=== PATIENT | female | born 1955 | race Caucasian/White ===

== ENCOUNTER → 2020-01-14 14:20 | Outpatient (CLI) | payer MEDICARE, BC, SELFPAY ==
[2020-01-14 14:37] LABS: RBC Urine None Seen (0-5/HPF)
[2020-01-14 15:32] LABS: Appearance Urine UA CLEAR; Bilirubin Urine UA NEGATIVE (NEGATIVE); Color Urine UA YELLOW; Glucose Urine UA NEGATIVE (Negative); Ketones Urine UA NEGATIVE (NEGATIVE); Leukocyte Esterase Urine UA NEGATIVE (NEGATIVE); Nitrite Urine UA NEGATIVE (Negative); Occult Blood Urine UA NEGATIVE (Negative); Protein Urine UA NEGATIVE (Negative); Specific Gravity Urine UA <=1.005 (1.000-1.035); Urobilinogen Urine UA 0.2 E.U./dL (0.2)
[2020-01-14 16:09] LABS: Bacteria Urine Occasional (0-1); Squamous Epithelial Cell Urine 0-1 /HPF (0-5/HPF); WBC Urine 0-1/HPF (0-5/HPF)
== END ==
PROVIDERS: Referring Provider Physician Assistant; Visit Provider Physician Assistant
DX: R39.15 Urgency of urination (principal)
CPT/HCPCS: 81001; 87086

== ENCOUNTER → 2020-03-05 11:02 | Outpatient (CLI) | payer MEDICARE, BC, SELFPAY ==
[2020-03-06 21:17] LABS: COVID19 Sendout Not Detected (Not Detect)
== END ==
PROVIDERS: Visit Provider Physician Assistant
DX: Z01.818 Encounter for other preprocedural examination (principal)
CPT/HCPCS: 87635

== ENCOUNTER 2020-03-08 06:10 | Day surgery (SDC) | payer MEDICARE, BC, SELFPAY ==
--- NOTE | 2020-03-07 17:27 | PM.PREOP ---
Pre-operative Note COVID-19 COVID-19 status: Negative Interval Note History & Physical reviewed/Exam performed by Physician: Yes Changes to H&P: No
[2020-03-08] MEDS: CATARACT EYE COMPOUND (10 DROPS/SYRINGE) 3 DROPS EYE-OP ×2 (07:25→07:38)
[2020-03-08] MEDS: PROPARACAINE 0.5% OPHTH SOL 2 DROPS EYE-OP (07:28)
[2020-03-08 07:30] VITALS: BP 101/56; PULSE 58; RESP 16; TEMP 36.2; O2SAT 97; BMI 26.6
--- NOTE | 2020-03-08 07:35 | PM.PROC.1 ---
Procedures Date/Time Date of procedure: 03/08/20 Time of procedure: 07:45
--- NOTE | 2020-03-08 07:36 | PM.OP.1 ---
Operative Date/Time/Diagnoses Date of procedure: 03/08/20 Time of procedure: 07:45 Procedure & Clinicians Procedure: Preoperative diagnoses: 1. Right advanced nuclear sclerotic and cortical cataract. 2. H/o brain tumor resection. 3. Hyperlipidemia. Postoperative diagnoses: 1. Cataract removed by phacoemulsification with placement of posterior chamber intraocular lens. Procedure: Phacoemulsification with posterior chamber intraocular lens implant Surgeon: Shelby Meeks MD Complications: None Specimen: None Implant: ZCBOO+17.5 Blood loss: None Anesthesia: Retrobulbar with monitored standby Description of procedure: Patient presents with a complaint of decreased vision due to advanced cataract which is affecting activities of daily living . The patient wants surgery to improve vision. She understands she is having surgery during the COVID-19 epidemic and desires to proceed. She was preoperatively tested for the virus and was negative within 72 hours of surgery. Both distance and near The patient was taken to the operating room and given IV sedation. A retrobulbar block consisting of 6 cc of 2% xylocaine without epinephrine mixed half and half with 0.5% Marcaine with 1 cc of hyaluronidase added is placed between the medial and lateral 1/3 of the inferior orbital rim. The eye is manually massaged for 30 sec, prepped using Betadine solution, and draped in the usual sterile fashion. Temporal approach was made, a 1 mm side-port incision was made 90? from the proposed clear corneal incision position. Phenylephrine 1.5% mixed with 1% xylocaine 0.2 cc was placed into the anterior chamber. Viscoat followed by Healon was then placed. A 2.6 mm clear incision with a 2.6 mm blade was placed. A 360 degree capsulorrhexis style capsulotomy was then performed with a cystitome needle on a Healon. Hydrodelineation and hydrodissection were performed. The phacoemulsification unit is introduced, and sculpting notice used to groove the central lens. It is then removed in chopping mode. The patient had a sudden jerking motion during the procedure however no untoward events occurred. Epi nucleus is removed with epinuclear mode and irrigation aspiration was used to remove the peripheral cortex. The posterior capsule is polished as service was an extensive posterior subcapsular plaque.. The intraocular lens is selected, inspected, power confirmed, and placed in the posterior chamber. The wound was stromally hydrated and tested for leaks, there was none and it was left sutureless. Vigamox 0.1 cc was placed into the anterior chamber. Kenalog 0.2 cc was placed in the superior subconjunctival space. A drop of antibiotic and was placed and the eye was patched and shielded. The patient was stable and returned to the recovery room in excellent condition. Dictated by: Shelby Meeks MD Copy to: [facility] Same procedure as scheduled: Yes
[2020-03-08] MEDS: LIDOCAINE 2% 4 ML, BUPIVACAINE 0.5% (PF) 4 ML, HYALURONIDASE 150 UNIT INJ (07:53)
[2020-03-08] MEDS: CHONDROIDTIN/SOD HYALURONATE 1.05 ML SYRINGE INTRAOCULA (08:12)
[2020-03-08] MEDS: HYALURONATE SODIUM 10 MG/ML SYRINGE INJ (08:13)
[2020-03-08] MEDS: ERYTHROMYCIN OPHTH 1 GM OINT 1 APPLIC EYE-RIGHT (08:13)
[2020-03-08] MEDS: MOXIFLOXACIN INJ 5 MG/ML VIAL EYE-OP (08:14)
[2020-03-08] MEDS: PHENYLEPHRINE/LIDOCAINE VIAL (OR) 0.2 ML EYE-OP (08:14)
[2020-03-08] MEDS: TRIAMCINOLONE 50 MG/5 ML VIAL INJ (08:15)
[2020-03-08] MEDS: BALANCED SALT IRRIG SOLN NO.2 500 ML, EPINEPHrine 1 MG IRR (08:15)
[2020-03-08 08:51] VITALS: BP 105/58; PULSE 56; RESP 16; TEMP 35.9; O2SAT 97
== END 2020-03-08 09:00 | disposition home or self-care (01) ==
LOC: OR 06:13
PROVIDERS: PCP Internal Medicine; Referring Provider Ophthalmology; Visit Provider Ophthalmology
PROC: (CPT 66984; principal; 2020-03-08 07:45)
DX: H25.811 Combined forms of age-related cataract, right eye (principal); E78.5 Hyperlipidemia, unspecified; H40.013 Open angle with borderline findings, low risk, bilateral; H04.123 Dry eye syndrome of bilateral lacrimal glands
CPT/HCPCS: 66984; J0171; J2250; J2704; J3010; J3301; J3470

== ENCOUNTER → 2020-07-20 07:07 | Outpatient (CLI) | payer MEDICARE, BC, SELFPAY ==
[2020-07-20 08:44] LABS: Cholesterol 239 mg/dL (140-199); HDL Cholesterol 51 mg/dL (40-60); LDL Cholesterol Calculated 158 mg/dL (<100); Triglycerides 152 mg/dL (35-150)
== END ==
PROVIDERS: PCP Internal Medicine; Referring Provider Internal Medicine; Visit Provider Internal Medicine
DX: E78.2 Mixed hyperlipidemia (principal)
CPT/HCPCS: 36415; 80061

== ENCOUNTER → 2021-07-17 17:20 | Outpatient (CLI) | payer MEDICARE, BC, SELFPAY ==
--- NOTE | 2021-07-17 | DI.MG.S_ITS ---
BILATERAL DIGITAL SCREENING MAMMOGRAM 3D/2D WITH CAD: 07/17/2021 CLINICAL: Routine screening. Comparison is made to exam dated: 12/29/2018 mammogram - outside facility. The tissue of both breasts is predominantly fatty. Current study was also evaluated with a Computer Aided Detection (CAD) system. No significant masses, calcifications, or other findings are seen in either breast. There has been no significant interval change. IMPRESSION: NEGATIVE There is no mammographic evidence of malignancy. A 1 year screening mammogram is recommended. This exam was interpreted at Station ID: [id number]. NOTE: For mammograms, a report in lay terms will be sent to the patient. Approximately 15% of breast malignancies will not be visualized mammographically. In the management of a palpable breast mass, a negative mammogram must not discourage biopsy of a clinically suspicious lesion. Electronically Signed By: Cornelio Stuart M.D., jr/[place]:07/18/2021 11:17:16 letter sent: Normal Exam ACR BI-RADS Category 1: Negative 3341F
== END ==
PROVIDERS: PCP Internal Medicine; Referring Provider Internal Medicine; Visit Provider Internal Medicine
DX: Z12.31 Encounter for screening mammogram for malignant neoplasm of breast (principal)
CPT/HCPCS: 77063; 77067

== ENCOUNTER 2021-09-19 07:54 | Day surgery (SDC) | payer MEDICARE, BC, SELFPAY ==
--- NOTE | 2021-09-19 08:10 | SUR.PREOP ---
co9vid swab sent to lab
[2021-09-19 08:22] VITALS: BP 106/63; PULSE 73; RESP 16; TEMP 36.3; O2SAT 100; BMI 28.3
[2021-09-19 08:28] LABS: COVID19 -Nasal RAPID Negative (Negative)
[2021-09-19] MEDS: SODIUM CHLORIDE 0.9% 1,000 ML 100 ML IV (08:30)
--- NOTE | 2021-09-19 08:51 | PM.HP.1 ---
History of Present Illness History of Present Illness Date Patient Seen: 09/19/21 Chief complaint: DX COLONOSCOPY Narrative: History of adenomatous colon polyps. May be advancement of disease of procedure not performed on time. Patient History Medical History (Updated 09/19/21 @ 07:58 by Sherrill Greer RN) Depression Family & Social History Social History: household members spouse Tobacco & Substance use: Smoking Status Former smoker alcohol intake never Substance Use Type does not use Meds Home Medications and Allergies Home Medications Medication Instructions Recorded Confirmed Type bupropion HCl 150 mg 24 hr tablet, 150 mg PO DAILY 03/08/20 09/19/21 History extended release (Wellbutrin XL) fluoxetine 20 mg capsule 20 mg PO DAILY 03/08/20 09/19/21 History cholecalciferol (vitamin D3) 25 25 mcg PO DAILY 09/19/21 09/19/21 History mcg (1,000 unit) tablet (Vitamin D3) magnesium 2 tab PO DAILY 09/19/21 09/19/21 History multivitamin 2 tab PO DAILY 09/19/21 09/19/21 History Allergies Allergy/AdvReac Type Severity Reaction Status Date / Time No Known Drug Allergies Allergy Verified 03/07/20 12:38 Exam Vital Signs (past 8 hours): - 09/19/21 08:22 Temperature 97.3 F L Pulse Rate 73 Respiratory Rate 16 Blood Pressure 106/63 Pulse Oximetry 100 Oxygen Delivery Method Room Air Narrative Exam Narrative: Oropharynx free of lesions Chest clear to auscultation percussion Cardiac exam reveals no S3 or murmur Objective Labs Labs: Laboratory Results - last 24 hr 09/19/21 08:06 SARS-CoV-2 (PCR) Negative Assessment & Plan Assessment & Plan narrative: History of adenomatous colon polyps need for follow-up colonoscopy. Risks, benefits, alternatives have been explained. Further recommendation will follow the results of the study. Time Spent With Patient Critical Care time: I spent a total of [] minutes of critical care time on this patient's care today; this time is exclusive of procedural time.
--- NOTE | 2021-09-19 09:24 | PM.OP.COLON ---
Operative Date/Time/Diagnoses Pre-op diagnosis: History of colon polyps Procedure & Clinicians Study performed: Colonoscopy Indications: History of colon polyps Surgeon: Delfin Mckenna Procedure Notes Procedure in detail: After informed consent was obtained the patient was placed in the left lateral decubitus position. The video colonoscope was introduced to the rectum slowly advanced cecum at the level of the IC valve. Preparation was good. Advancement was difficult given excessive and multiple loops. On slow withdrawal mucosa was carefully examined. The scope was removed. The patient tolerated procedure well. Blood loss none Complications none Sedation mac Findings 1. Moderate to severe melanosis coli through the entire colon 2. Otherwise negative colonoscopy to the cecal rim Given difficulty visualizing all areas and not seeing the last couple of cm of colon was just she of follow-up colonoscopy in 5 years.
[2021-09-19 09:31] VITALS: BP 101/58; PULSE 67; RESP 16; TEMP 36.2; O2SAT 95
[2021-09-19 09:36] VITALS: BP 110/56; PULSE 73; RESP 16; O2SAT 95
[2021-09-19 09:40] VITALS: BP 103/56; PULSE 71; RESP 12; O2SAT 96
[2021-09-19 09:46] VITALS: BP 116/74; PULSE 72; RESP 16; TEMP 36.2; O2SAT 96
[2021-09-19 09:51] VITALS: BP 117/68; PULSE 68; RESP 14; O2SAT 98
== END 2021-09-19 10:01 | disposition home or self-care (01) ==
PROVIDERS: Internal Medicine Gastroenterology; PCP Internal Medicine; Referring Provider Internal Medicine Gastroenterology; Visit Provider Internal Medicine Gastroenterology
PROC: 0DJD8ZZ Inspection of Lower Intestinal Tract, Via Natural or Artificial Opening Endoscopic (ICD-10-PCS; CPT 45378; principal; 2021-09-19 09:00)
DX: Z12.11 Encounter for screening for malignant neoplasm of colon (principal); Z86.010 Personal history of colon polyps; K63.89 Other specified diseases of intestine; Z20.822 Contact with and (suspected) exposure to COVID-19
CPT/HCPCS: G0105; 36415; 87635; J2704

== ENCOUNTER → 2021-11-05 10:22 | Outpatient (CLI) | payer MEDICARE, BC, SELFPAY ==
[2021-11-05 11:41] LABS: COVID19 -Nasal RAPID Negative (Negative)
== END ==
PROVIDERS: PCP Internal Medicine; Visit Provider Family Medicine Sleep Medicine
DX: Z20.822 Contact with and (suspected) exposure to COVID-19 (principal)
CPT/HCPCS: 87635; C9803

== ENCOUNTER 2021-11-07 07:21 | Day surgery (SDC) | payer MEDICARE, BC, SELFPAY ==
--- NOTE | 2021-11-05 18:36 | PM.PREOP ---
Pre-operative Note COVID-19 COVID-19 status: Negative Criteria for continued procedure: Expected advancement of disease process, Possibility delay results in more complex future surgery or treatment, Increased loss of function, Delay expected to result in less-positive ultimate med/surg outcome and Non-surgical alternatives not available or appropriate per current SOC Interval Note History & Physical reviewed/Exam performed by Physician: Yes Changes to H&P: No
--- NOTE | 2021-11-05 18:37 | PM.OP.1 ---
Operative Date/Time/Diagnoses Date of procedure: 11/07/21 Time of procedure: 08:45 Procedure & Clinicians Procedure: Preoperative diagnoses: 1. Left nuclear sclerotic and cortical cataract. 2. History of resected brain meningioma 3. Arthritis 4. Headaches 5. Migraines 6. Left shoulder pain Postoperative diagnoses: 1. Complex cataract removed by phacoemulsification with placement of posterior chamber intraocular lens. 2. Capsular dye used to improve safety. Procedure: Phacoemulsification with posterior chamber intraocular lens implant Surgeon: Shelby Meeks MD Complications: None Specimen: None Implant: DIBOO+21.5 target -150. Blood loss: None Anesthesia: Retrobulbar with monitored standby Description of procedure: Patient presents with a complaint of decreased vision due to cataract which is affecting activities of daily living with problems with night driving. She is developing posterior subcapsular changes in addition to her advanced nuclear sclerotic cataract and this is causing glare with driving. She had successful cataract surgery in her right eye in 2019 and this is a distance targeted eye. She wants surgery to improve vision. She lacks a nearsighted implant with a-150 target to be similar to which she is currently custom to. The patient understands the extra risk of surgery during the COVID-19 epidemic and wishes to proceed. They have tested negative for active virus within 72 hours of the procedure. She has a very deep-set eye in order to improve safety capsular dye will be used due to the density of the cataract. The patient was taken to the operating room and given IV sedation. A time-out was performed. retrobulbar block consisting of 6 cc of 2% xylocaine without epinephrine mixed half and half with 0.5% Marcaine with 1 cc of hyaluronidase added is placed between the medial and lateral 1/3 of the inferior orbital rim. The eye is manually massaged for 30 sec, prepped using Betadine solution, and draped in the usual sterile fashion. Temporal approach was made, a 1 mm side-port incision was made 90? from the proposed clear corneal incision position. Phenylephrine 1.5% mixed with 1% xylocaine 0.2 cc was placed into the anterior chamber. An air bubble was placed followed by vision blue dye. The excess dye was then irrigated out with BSS. EndoCoat followed by Healon was then placed. The eye was carefully draped maximize visibility. A 2.6 mm clear incision with a 2.6 mm blade was placed. A 360 degree capsulorrhexis style capsulotomy was then performed with [facility] by the capsular dye Hydrodelineation and hydrodissection were performed. The phacoemulsification unit is introduced, and sculpting used to groove the central lens. It is then removed in chopping mode. Epi nucleus is removed with epinuclear mode and irrigation aspiration was used to remove the peripheral cortex. The posterior capsule is polished. The intraocular lens is selected, inspected, power confirmed, and placed in the posterior chamber. The wound was stromally hydrated and tested for leaks, there was none and it was left sutureless. Intracameral moxifloxacin 0.1 cc was placed into the anterior chamber. Kenalog 0.2 cc was placed in the superior subconjunctival space. A drop of antibiotic and was placed and the eye was patched and shielded. The patient was stable and returned to the recovery room in excellent condition. Dictated by: Shelby Meeks MD Copy to: [facility] Same procedure as scheduled: Yes
[2021-11-07] MEDS: PROPARACAINE 0.5% OPHTH SOL 2 DROPS EYE-OP (07:44)
[2021-11-07] MEDS: CATARACT EYE COMPOUND (10 DROPS/SYRINGE) 3 DROPS EYE-OP (07:44)
[2021-11-07 07:54] VITALS: BP 97/64; PULSE 77; RESP 14; TEMP 36.2; O2SAT 97; BMI 28.3
[2021-11-07] MEDS: HYALURONATE SODIUM 10 MG/ML SYRINGE INJ (09:23)
[2021-11-07] MEDS: HYALURONATE SODIUM 30 MG-10 MG/ML SYRINGES 1 BOX INTRAOCULA (09:23)
[2021-11-07] MEDS: MOXIFLOXACIN INJ 4 MG/0.8 ML VIAL 0.5 MG EYE-OP (09:23)
[2021-11-07] MEDS: ERYTHROMYCIN OPHTH 1 GM OINT 1 APPLIC EYE-LEFT ×2 (09:23→09:26)
[2021-11-07] MEDS: PHENYLEPHRINE/LIDOCAINE VIAL (OR) 0.2 ML EYE-OP (09:24)
[2021-11-07] MEDS: BALANCED SALT IRRIG SOLN NO.2 500 ML, EPINEPHrine 1 MG IRR (09:25)
[2021-11-07] MEDS: LIDOCAINE 2% 4 ML, BUPIVACAINE 0.5% (PF) 4 ML, HYALURONIDASE 150 UNIT INJ (09:25)
[2021-11-07] MEDS: TRYPAN BLUE 0.5 ML SYRINGE INJ (09:25)
[2021-11-07] MEDS: TRIAMCINOLONE 50 MG/5 ML VIAL INJ (09:26)
[2021-11-07 09:49] VITALS: BP 101/68; PULSE 60; RESP 16; TEMP 36.1; O2SAT 98
== END 2021-11-07 10:02 | disposition home or self-care (01) ==
LOC: OR 07:23
PROVIDERS: PCP Internal Medicine; Referring Provider Ophthalmology; Visit Provider Ophthalmology
PROC: (CPT 66984; principal; 2021-11-07 08:45)
DX: H25.812 Combined forms of age-related cataract, left eye (principal)
CPT/HCPCS: 66984; J0171; J3301; J3470

== ENCOUNTER 2022-02-16 16:44 | Emergency (ER) | payer MEDICARE, BC, SELFPAY ==
[2022-02-16 17:40] VITALS: PULSE 82; RESP 18; TEMP 36.8; O2SAT 95; BMI 29.1
[2022-02-16] MEDS: ACETAMINOPHEN 325 MG TABLET 975 MG PO (18:20)
--- NOTE | 2022-02-16 18:57 | ED.EAR ---
HPI - Ear Problem <RENETTA Varner - Last Filed: 02/16/22 19:01> General Chief complaint: Ear Stated complaint: Left Ear Pain Time Seen by Provider: 02/16/22 18:06 Source: patient and family Mode of arrival: Ambulatory History of Present Illness HPI Narrative: 58-year-old female presents to the emergency department with complaints of left ear pain since early this morning. Patient denies any trauma to the ear, discharge, history of ear infections. Patient reports that she instilled some Debrox into her ear and that helped a little bit. Patient has found good relief with Tylenol. Related Data Home Medications Medication Instructions Recorded Confirmed bupropion HCl 150 mg 24 hr tablet, 150 mg PO DAILY 03/08/20 11/07/21 extended release (Wellbutrin XL) fluoxetine 20 mg capsule 20 mg PO DAILY 03/08/20 11/07/21 multivitamin 2 tab PO DAILY 09/19/21 11/07/21 Previous Rx's Medication Instructions Recorded amoxicillin 875 mg-potassium 1 tab PO BID otitis media 7 days 02/16/22 clavulanate 125 mg tablet #14 tabs Allergies Allergy/AdvReac Type Severity Reaction Status Date / Time No Known Drug Allergies Allergy Verified 11/07/21 07:41 Review of Systems <RENETTA Varner - Last Filed: 02/16/22 19:01> Review of Systems Narrative: Narrative: GENERAL: Denies chills, fatigue, fever, sweats. HEENT: Denies sinus pain, sore throat, difficulty swallowing, dizziness. RESPIRATORY: Denies dyspnea, cough, wheezing, sputum. CARDIOVASCULAR: Denies chest pain, palpitations, edema. GASTROINTESTINAL: Denies nausea, vomiting, abdominal pain, diarrhea, constipation. : Denies dysuria, frequency, incontinence, hematuria, urinary retention, flank pain. MUSCULOSKELETAL: Denies weakness, joint pain, or bony pain. SKIN: Denies rash, skin lesions, or pruritis. NEUROLOGIC: Denies weakness, dizziness, headache, numbness. PSYCHIATRIC: No concerning psychosocial issues. Patient History <RENETTA Varner - Last Filed: 02/16/22 19:01> Medical History Brain tumor (benign) (~2016) Depression Surgical History History of cataract extraction with lens replacement Social History household members: spouse Smoking Status: Former smoker alcohol intake: never Smoking Status: Former smoker Substance Use Type: does not use Exam <RENETTA Varner - Last Filed: 02/16/22 19:01> Narrative Exam Narrative: Exam Narrative: GENERAL: This is a well-nourished, well-developed patient, in no acute distress HEAD: Atraumatic. Normocephalic. EYES: Pupils equal round and reactive. Extraocular motions intact. No injection or drainage. ENT: Nose without bleeding, purulent drainage. Airway patent. Right TM is pearly kennedy and left TM bulging with opaque effusion. NECK: Trachea midline. No JVD or lymphadenopathy. Supple and nontender. CARDIOVASCULAR: Regular rate and rhythm, peripheral pulses intact, cap refill <2 sec. RESPIRATORY: Breath sounds equal and clear bilaterally. No wheezes, rales, or rhonchi. No cough. No increased respiratory effort. No accessory muscle use. GASTROINTESTINAL: Abdomen soft, non-tender, nondistended without guarding or rebound. No suprapubic pain. No hepato-splenomegaly, or palpable masses. EXTREMITIES: Normal range of motion, no clubbing or edema. Neurovascularly intact. NEURO: A&O x 3. SKIN: Warm, dry, no rashes or lesions noted. Initial Vital Signs Initial Vital Signs: Vital Signs Temperature 98.3 F 02/16/22 17:40 Pulse Rate 82 02/16/22 17:40 Respiratory Rate 18 02/16/22 17:40 Pulse Oximetry 95 02/16/22 17:40 Oxygen Delivery Method 02/16/22 17:40 Reviewed <Dima Clark DO - Last Filed: 02/17/22 00:15> Initial Vital Signs Initial Vital Signs: Vital Signs Temperature 98.3 F 02/16/22 17:40 Pulse Rate 82 02/16/22 17:40 Respiratory Rate 18 02/16/22 17:40 Pulse Oximetry 95 02/16/22 17:40 Oxygen Delivery Method 02/16/22 17:40 Course <RENETTA Varner - Last Filed: 02/16/22 19:01> Orders Ordered: Discontinued Medications Acetaminophen (Acetaminophen 325 Mg Tablet) 975 mg PO NOW ONE Stop: 02/16/22 17:50 Last Admin: 02/16/22 18:20 Dose: 975 mg Documented By: RONIT Amoxicillin/Clavulanate Potassium (Amoxicillin/Clav 875/125 Mg) 1 tab PO NOW ONE Stop: 02/16/22 18:57 Last Admin: 02/16/22 19:03 Dose: 1 tab Documented By: EB Vital Signs Vital signs: Vital Signs - 8 hr 02/16/22 17:40 02/16/22 19:08 Temperature 98.3 F Pulse Rate 82 84 Respiratory Rate 18 17 Pulse Oximetry 95 98 Oxygen Delivery Method Room Air Room Air <Dima Clark DO - Last Filed: 02/17/22 00:15> Orders Ordered: Discontinued Medications Acetaminophen (Acetaminophen 325 Mg Tablet) 975 mg PO NOW ONE Stop: 02/16/22 17:50 Last Admin: 02/16/22 18:20 Dose: 975 mg Documented By: RONIT Amoxicillin/Clavulanate Potassium (Amoxicillin/Clav 875/125 Mg) 1 tab PO NOW ONE Stop: 02/16/22 18:57 Last Admin: 02/16/22 19:03 Dose: 1 tab Documented By: EB Vital Signs Vital signs: Vital Signs - 8 hr 02/16/22 17:40 02/16/22 19:08 Temperature 98.3 F Pulse Rate 82 84 Respiratory Rate 18 17 Pulse Oximetry 95 98 Oxygen Delivery Method Room Air Room Air Medical Decision Making <RENETTA Varner - Last Filed: 02/16/22 19:01> Differential Diagnosis Differential Diagnosis: Otitis media MDM Narrative Medical decision making narrative: 66-year-old female that presents to the emergency department with left ear pain has symptoms consistent with left otitis media. Will treat with Augmentin. As pharmacies are closed, we will provide 1st dose in the emergency department. Discussed return precautions and plan of care to patient and , who were agreeable with course of action. Discharge Plan Departure Patient Disposition: Home Clinical Impression: Otitis media Instructions: DI for Middle Ear Infection-Adult Activity Restrictions/Additional Instructions: *You have been diagnosed with a left ear infection. For this, we will treat you with an antibiotic, you should start seen improving results within 72 hours. Until that time, please take Tylenol or ibuprofen, as needed, for comfort. For worsening symptoms, or if you do not get any improvement after 72 hours, please follow-up with your family doctor or return to the emergency department. *What to do: *Please continue to take your regular medications as directed. [x ] New medication prescriptions sent to your pharmacy: [[facility] [place] [ ] New medication written as a paper prescription [ ] No new medications given *Please follow up with your primary care provider in 2-3 days, call for an appointment. Let them know you were seen in the Emergency Department and that we ask that you be seen in follow up. We will electronically transmit a record of today's note if your PCP is in our system *If you do not have a primary care provider please contact the [facility] Resource line at [phone]. They will ask some questions about your medical history and help get you set up with a doctor in the community. ? Return to ER if you should have any new, worsening or concerning symptoms, such as worsening pain, severe headache, confusion, chest pain, difficulty breathing, fever greater than 101 F, shaking chills, persistent vomiting to the point that you cannot drink fluids, or other new or worsening symptoms. Prescriptions: New amoxicillin-pot clavulanate 875-125 mg tablet 1 tab PO BID 7 Days Qty: 14 0RF No Action fluoxetine 20 mg Capsule 20 mg PO DAILY bupropion HCl [Wellbutrin XL] 150 mg Tablet Extended Release 24 Hr 150 mg PO DAILY Label Comments: States that her medication is working well for her multivitamin Tablet 2 tab PO DAILY Label Comments: ritual multivitamin Referrals: Cortez Polanco MD [Primary Care Provider] - Visit Report Forms: Patient Portal/API <Dima Clark DO - Last Filed: 02/17/22 00:15> [facility]: Dr Clark Co-Sign Statement: I was available for consultation during this patient's emergency department visit. This chart is signed by myself for administrative purposes only. I did not have direct contact with this patient during this visit. They were seen independently by the APC.
[2022-02-16] MEDS: AMOXICILLIN/CLAV 875/125 MG 1 TAB PO (19:03)
[2022-02-16 19:08] VITALS: PULSE 84; RESP 17; O2SAT 98
== END 2022-02-16 19:09 | disposition home or self-care (01) ==
PROVIDERS: Emergency Provider Registered Nurse; PCP Internal Medicine
DX: H66.92 Otitis media, unspecified, left ear (principal)
CPT/HCPCS: 99283

== ENCOUNTER → 2022-08-06 09:08 | Outpatient (CLI) | payer MEDICARE, BC, SELFPAY ==
--- NOTE | 2022-08-06 | DI.RAD.S_ITS ---
PROCEDURE: XR KNEE LT 3V INDICATIONS: ACUTE PAIN OF LEFT KNEE TECHNIQUE: 3 views of the knee were acquired. COMPARISON: None. FINDINGS: Bones: No fractures or dislocations. No suspicious bony lesions. There is mild medial femorotibial compartment narrowing. Soft tissues: No joint effusion. No suspicious soft tissue calcifications. IMPRESSION: Mild osteoarthritis. No acute radiographic findings. Dictated by: Chiara Millard M.D. on 08/06/2022 at 10:29 Approved by: Chiara Millard M.D. on 08/06/2022 at 10:29
== END ==
PROVIDERS: PCP Internal Medicine; Referring Provider Internal Medicine; Visit Provider Internal Medicine
DX: M17.12 Unilateral primary osteoarthritis, left knee (principal); M25.562 Pain in left knee
CPT/HCPCS: 73562

== ENCOUNTER → 2022-12-20 14:59 | Outpatient (CLI) | payer MEDICARE, BC, SELFPAY ==
--- NOTE | 2022-12-20 | DI.MG.S_ITS ---
BILATERAL DIGITAL SCREENING MAMMOGRAM 3D/2D WITH CAD: 12/20/2022 CLINICAL: Routine screening. Comparison is made to exams dated: 07/17/2021 mammogram - [facility] and 12/29/2018 mammogram - outside facility. Both breasts are heterogeneously dense, which may obscure small masses (category c / 51-75% glandular tissue). Current study was also evaluated with a Computer Aided Detection (CAD) system. There is a possible developing focal asymmetry in the right breast at 11 o'clock posterior depth. No other significant masses, calcifications, or other findings are seen in either breast. IMPRESSION: INCOMPLETE: NEEDS ADDITIONAL IMAGING EVALUATION The possible developing focal asymmetry in the right breast is indeterminate. Ultrasound with possible additional views are recommended. Based on the Tyrer Cuzick model (a risk assessment model) the patient's lifetime risk is 7.6% and her 10 year risk is 4.5%. According to the ACR, ACS, and NCCN guidelines, an annual breast MRI exam along with mammogram is recommended if the patient's lifetime risk is 20% or greater. This exam was interpreted at Station ID: [id number]. NOTE: For mammograms, a report in lay terms will be sent to the patient. Approximately 15% of breast malignancies will not be visualized mammographically. In the management of a palpable breast mass, a negative mammogram must not discourage biopsy of a clinically suspicious lesion. Electronically Signed By: Lloyd agarwal/[place]:12/23/2022 10:06:07 letter sent: Additional Imaging Needed ACR BI-RADS Category 0: Incomplete 3340F
== END ==
PROVIDERS: PCP Family Medicine Sports Medicine; Referring Provider Family Medicine Sports Medicine; Visit Provider Family Medicine Sports Medicine
DX: Z12.31 Encounter for screening mammogram for malignant neoplasm of breast (principal)
CPT/HCPCS: 77063; 77067

== ENCOUNTER → 2023-01-13 12:13 | Outpatient (CLI) | payer MEDICARE, BC, SELFPAY ==
--- NOTE | 2023-01-13 | DI.MG.S_ITS ---
UNILATERAL RIGHT DIGITAL DIAGNOSTIC MAMMOGRAM 3D/2D WITH ADDITIONAL VIEWS: 01/13/2023 CLINICAL: Additional evaluation requested from prior study. Comparison is made to exams dated: 12/20/2022 mammogram, 07/17/2021 mammogram - [facility], and 12/29/2018 mammogram - outside facility. The right breast is heterogeneously dense, which may obscure small masses (category c / 51-75% glandular tissue). There is a focal asymmetry in the right breast at 11 o'clock posterior depth. This is seen in additional views. There is architectural distortion associated with the focal asymmetry. No other significant masses or calcifications are seen in the breast. IMPRESSION: INCOMPLETE: NEEDS ADDITIONAL IMAGING EVALUATION The focal asymmetry in the right breast is indeterminate. A targeted ultrasound of the right breast is recommended and will be performed immediately following this exam. Based on the Tyrer Cuzick model (a risk assessment model) the patient's lifetime risk is 7.6% and her 10 year risk is 4.5%. According to the ACR, ACS, and NCCN guidelines, an annual breast MRI exam along with mammogram is recommended if the patient's lifetime risk is 20% or greater. This exam was interpreted at Station ID: [id number]. NOTE: For mammograms, a report in lay terms will be sent to the patient. Approximately 15% of breast malignancies will not be visualized mammographically. In the management of a palpable breast mass, a negative mammogram must not discourage biopsy of a clinically suspicious lesion. Electronically Signed By: Chiara Millard M.D. lk/:01/13/2023 13:37:46 ACR BI-RADS Category 0: Incomplete 3340F
--- NOTE | 2023-01-13 | DI.CT.S_ITS ---
PROCEDURE: CT HEAD/BRAIN WO CON INDICATIONS: HEADACHES TECHNIQUE: Noncontrast 4.5 mm thick angled axial sections acquired from the foramen magnum to the vertex, with coronal and sagittal reformats. For radiation dose reduction, the following was used: automated exposure control, adjustment of mA and/or kV according to patient size. COMPARISON: None. FINDINGS: Image quality: Excellent. CSF spaces: Basal cisterns are patent. No extra-axial fluid collections. The ventricles are symmetric in size and shape. Brain: Focal encephalomalacia can be seen involving the left frontal lobe, as on series 4, image 14 and on series 2, image 22. No intracranial bleeds or masses. There is cerebral volume loss for age, with resultant ventricular and sulcal prominence. There are periventricular and deep white matter chronic small vessel ischemic changes. There is intracranial internal carotid artery atherosclerosis. Skull and face: Left frontal craniotomy change can be seen. Calvarium and visualized facial bones appear intact, without suspicious lesions. Sinuses: Visualized sinuses and mastoids are clear. IMPRESSION: Left frontal lobe encephalomalacia is seen, with overlying craniotomy change. These findings are considered to be within postoperative limits. To the limits of noncontrast CT, no recurrent masses are seen. If there is strong clinical concern for a recurrent meningioma, please consider a dedicated follow-up brain MRI (without and with contrast) for further evaluation (assuming that there is no contraindication). Dictated by: Brandon Curtis M.D. on 01/13/2023 at 14:39 Approved by: Brandon Curtis M.D. on 01/13/2023 at 14:40
--- NOTE | 2023-01-13 | DI.US.S_ITS ---
ULTRASOUND OF RIGHT BREAST: 01/13/2023 CLINICAL: Add views of right breast. Comparison is made to exams dated: 01/13/2023 mammogram, 12/20/2022 mammogram, and 07/17/2021 mammogram - [facility]. Real-time ultrasound of the right breast was performed on the areas of interest. Torres scale images of the real-time examination were reviewed. There is a 1.5 cm x 1.6 cm x 1.9 cm irregular mass in the right breast at 11 o'clock middle depth. This irregular mass is hypoechoic with posterior acoustic shadowing. This correlates with mammography findings. Color flow imaging demonstrates that there is no vascularity present. The right axilla was interogated and normal appearing lymph nodes are visualized. IMPRESSION: SUSPICIOUS OF MALIGNANCY No right axillary adenopathy. The 1.5 cm x 1.6 cm x 1.9 cm irregular mass in the right breast is at a high suspicion for malignancy. An ultrasound guided biopsy is recommended. This exam was interpreted at Station ID: [id number]. SUMMARY: This was discussed with the patient by the radiologist Dr. Mark at the time of the exam. Electronically Signed By: Chiara kwan/:01/14/2023 14:51:25 letter sent: Biopsy Required Ultrasound BI-RADS: 4c High suspicion of malignancy
== END ==
PROVIDERS: PCP Family Medicine Sports Medicine; Referring Provider Family Medicine Sports Medicine; Visit Provider Family Medicine Sports Medicine
DX: G93.89 Other specified disorders of brain (principal); R51.9 Headache, unspecified; R92.8 Other abnormal and inconclusive findings on diagnostic imaging of breast; N63.11 Unspecified lump in the right breast, upper outer quadrant; Z98.890 Other specified postprocedural states
CPT/HCPCS: 70450; 76642; 77065; G0279

== ENCOUNTER → 2023-01-27 | Outpatient (CLI) | payer MEDICARE, BC, SELFPAY ==
--- NOTE | 2023-01-27 | PATH_ITS ---
[facility] Accession Number: [id number] No. of containers..01 Tissue . 01 Material submitted: . breast - RIGHT BREAST MASS 11:00 6 CM FN . 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 Please see Cancer Case Summary: . CANCER CASE SUMMARY . Specimen Procedure: Needle core biopsy. Specimen laterality: Right. . Tumor Location: Upper outer quadrant 11 o'clock, 6 cm from nipple. Histologic type: Invasive ductal carcinoma; signet ring cell features present. . Histologic grade Glandular/tubular differentiation: Score 3 of 3. Nuclear pleomorphism: Score 2 of 3. Mitotic rate: Score 1 of 3. Overall grade: Grade 2 (6/9). . Ductal carcinoma in situ: Not identified. . Lymphatic and/or vascular invasion: Not identified. . Microcalcifications: Not identified. [facility] 01/31/2023 1252 Local . 01 Electronically signed: . Natalie Benson MD, Pathologist NPI- [id number] . 01 Gross description: . Received in one formalin-filled container, labeled with the patient's name and designated right breast mass 11 o'clock 6 cm FN, are multiple fragments of yellow-delgado soft tissue which range in size from 0.2 x 0.2 x 0.2 cm to 0.6 x 0.1 x 0.1 cm. All fragments are totally submitted in one cassette. Collection date and time per requisition: 01/27/2023 at 1456. Total fixation time: Approximately 16 hours. ([id number]) /SREE 01/28/2023 0246 Local . 01 Microscopic: . An immunohistochemistry panel is performed to further evaluate the cells of interest. The control stains show appropriate reactivity. . RESULTS: Block A1: GATA3: Positive. SOX10: Negative. CK7: Positive. CK20: Negative. E-cadherin: Positive. CDX2: Negative. Villin: Negative. Mammoglobin: Positive. GCDFP: Negative. Beta-catenin: Cytoplasm positive. . The neoplastic cells are positive for CK7, GABBY-3, and mammoglobin, consistent with breast origin. They are negative for CK20, villin, cdx-2, and SOX-10, mitigating against a melanoma or gastro-intestinal origin. E-cadherin and beta-catenin (cytoplasmic) staining is strongly positive and favors ductal differentiation. . Predictive marker immunohistochemical studies are performed on block A1 with the invasive carcinoma showing the following results: . Estrogen receptor (SP1): Positive (approximately 90%, strong intensity). Progesterone receptor (1E2): Positive (approximately 20%, moderate intensity). Her2 (4B5): Negative (1+). . Internal controls for ER and WI are positive. Internal controls for ER and WI are negative; false negative results cannot be excluded. Internal controls for ER and WI are not present; false negative results cannot be excluded. Cold ischemic time is <5 minutes. The scoring criteria for breast biomarkers by immunohistochemistry is based on the ASCO/CAP guidelines (Tamara AC et al, J Clin Oncol: 2018 Feb 17;36(20):4103-6692 and Xiomara IBRAHIM et al, Arch Pathol Lab Med: 2009;134(6):907-22). Deparaffinized sections of formalin fixed tissue (along with appropriate positive controls) are incubated with the above antibody(s). Using the automated [place] stainer, tissue is incubated with the designated antibody which is then localized by a non-biotin, dual polymer detection system. The external controls are reviewed for appropriate reactivity and found to be adequate. Results on the target cell population are indicated above. These tests have not been validated on decalcified tissue. This test was developed and its performance characteristics determined by [employer]. It has not been cleared or approved by the U.S. Food and Drug Administration. The FDA has determined that such clearance or approval is not necessary. This test is used for clinical purposes. It should not be regarded as investigational or for research. . 01 Pathologist provided ICD-10: N63.10, R92.8, C50.911 . 01 CPT . 387073, C24158, N26793, 621297, 868857, 102804 Specimen Comment: A courtesy copy of this report has been sent to [facility] Pathology Performed at: 01 [facility] [address] [place] [id number] MD Sammy Sanches MD Phone: [phone]
--- NOTE | 2023-01-27 | DI.MG.S_ITS ---
UNILATERAL RIGHT DIGITAL DIAGNOSTIC MAMMOGRAM 3D/2D POST-PROCEDURE IMAGING FOR MARKER PLACEMENT: 01/27/2023 CLINICAL: Post clip. Comparison is made to exams dated: 01/13/2023 ultrasound, 01/13/2023 mammogram, 12/20/2022 mammogram, 01/27/2023 ultrasound biopsy, 07/17/2021 mammogram - [facility], and 12/29/2018 mammogram - outside facility. The right breast is heterogeneously dense, which may obscure small masses (category c / 51-75% glandular tissue). There is a marker clip in the appropriate position in the right breast at 11 o'clock posterior depth. This marker clip placement is at the biopsy site. IMPRESSION: POST PROCEDURE MAMMOGRAM FOR MARKER PLACEMENT There was a successful marker clip placement in the right breast posterior depth. Based on the Tyrer Cuzick model (a risk assessment model) the patient's lifetime risk is 7.6% and her 10 year risk is 4.5%. According to the ACR, ACS, and NCCN guidelines, an annual breast MRI exam along with mammogram is recommended if the patient's lifetime risk is 20% or greater. This exam was interpreted at Station ID: [id number]. NOTE: For mammograms, a report in lay terms will be sent to the patient. Approximately 15% of breast malignancies will not be visualized mammographically. In the management of a palpable breast mass, a negative mammogram must not discourage biopsy of a clinically suspicious lesion. Electronically Signed By: Lloyd agarwal/orlando:01/27/2023 15:07:11 ACR BI-RADS Category Post-procedure mammogram for marker placement
--- NOTE | 2023-01-27 | DI.US.S_ITS ---
ULTRASOUND GUIDED BIOPSY RIGHT BREAST USING VACUUM DEVICE WITH MARKING DEVICE INSERTED AND POST DIGITAL MAMMOGRAPHIC AND ULTRASOUND IMAGIN01/27/2023 CLINICAL: Right breast mass. PATIENT CONSENT: Risks (minor bleeding, infection, vasovagal reaction and repeat procedure), benefits and alternatives were explained to the patient and written informed consent was obtained. Correlation is made to exams dated: 01/13/2023 ultrasound, 01/13/2023 mammogram, 12/20/2022 mammogram, 07/17/2021 mammogram - [facility], and 12/29/2018 mammogram - outside facility. An ultrasound guided biopsy using real-time ultrasound was performed for the 1.5 cm x 1.6 cm x 1.9 cm mass located in the right breast at 11 o'clock middle depth. This was described on the previous mammography and ultrasound reports. The skin was prepped in the usual manner. Local anesthetic was administered to the access site. A skin deborah was made in the breast. The abnormality was approached from the lateral aspect. A 13 gauge biopsy needle was placed adjacent to the abnormality under ultrasound guidance. Once the needle was documented to be in the correct location, five specimens were obtained using the Mammotome biopsy system. The patient received additional local anesthetic during the procedure. A clip was inserted into the biopsy cavity. A sterile dressing was applied to the access site. Post procedure digital mammographic and ultrasound imaging demonstrates the location device at the targeted area. The specimens were sent to the laboratory for pathological analysis. IMPRESSION: ULTRASOUND GUIDED BIOPSY MALIGNANT Ultrasound guided biopsy of the 1.5 cm x 1.6 cm x 1.9 cm mass in the right breast at 11 o'clock middle depth was successful with no apparent post procedure complications. Pathology indicates malignant invasive ductal carcinoma (ID). Pathology results are concordant with imaging findings. A surgical/oncologic consultation is recommended. This exam was interpreted at Station ID: [id number]. Lloyd agarwal,aty/:02/03/2023 10:19:43
--- NOTE | 2023-01-30 11:23 | ONC.MSW ---
Description: New Referral Navigation T/C Reason for Referral: Breast Cancer Activity: Reviewed referral and EMR for medical status, acuity, and immediate needs. Pt had her bx done on 01/27/23, pathology still pending at the time of this referral. All imaging in the EMR. Discussed the role of navigation services, as well as what to expect with meeting with the Oncologist. No immediate needs identified at this time. Confirmed her initial consult time for 11:00am on 02/05/23.
== END ==
LOC: US 13:52
PROVIDERS: PCP Family Medicine Sports Medicine; Referring Provider Family Medicine Sports Medicine; Visit Provider Family Medicine Sports Medicine
DX: C50.411 Malignant neoplasm of upper-outer quadrant of right female breast (principal); Z17.0 Estrogen receptor positive status [ER+]
CPT/HCPCS: 19083; 77065

== ENCOUNTER → 2023-02-12 12:45 | Outpatient (CLI) | payer MEDICARE, BC, SELFPAY ==
--- NOTE | 2023-02-12 12:46 | DI.MRI.S_ITS ---
BREAST MRI OF BOTH BREASTS: 02/12/2023 CLINICAL: Right breast cancer. Comparison is made to exams dated: 01/27/2023 ultrasound biopsy, 01/27/2023 mammogram, 01/13/2023 ultrasound, 01/13/2023 mammogram, 12/20/2022 mammogram, and 07/17/2021 mammogram - [facility]. PROCEDURE: MR BREAST BI WO/W CON INDICATIONS: Newly diagnosed right breast cancer. Dense tissue on [place] TECHNIQUE: The patient was placed prone in a dedicated breast imaging coil. Precontrast axial STIR and 3D FLASH without fat saturation sequences were obtained. Both before and after bolus injection of contrast, sequential 1-minute axial 3D FLASH with fat saturation sequences for 3 time points, with subtraction images and maximum intensity projections (MIP's) generated. Delayed sagittal FLASH images with fat saturation were also obtained. Computer-aided detection, including computer algorithm analysis of MRI image data for lesion detection and characterization, pharmacokinetic analysis, with further physician review for interpretation, was performed. FINDINGS: Image quality: Excellent. There is mild background parenchymal enhancement. Right breast: At the 11 o'clock position of the right breast, there is a 1.7 x 1.6 x 1.6 cm irregular spiculated mass corresponding to biopsy-proven malignancy. There is a biopsy clip within the mass. No other suspicious non-mass enhancement, mass or focus identified. Left breast: No suspicious mass, non-mass enhancement, or focus Miscellaneous: No suspicious axillary or internal mammary adenopathy. There are suspected intramammary lymph nodes bilaterally. The partially visualized anterior mediastinum is unremarkable. Anterior lung opacities, probably atelectasis, not well evaluated on MRI. Hiatal hernia is partially seen. The partially visualized upper abdomen is unremarkable. IMPRESSION: KNOWN BIOPSY PROVEN MALIGNANCY At the 11 o'clock position of the right breast, there is a 1.7 x 1.6 x 1.6 cm irregular spiculated mass corresponding to biopsy-proven malignancy. No other suspicious non mass enhancement, mass, or focus identified in either breast. No suspicious axillary or internal mammary adenopathy. This exam was interpreted at Station ID: [id number]. Electronically Signed By: Robin Sawant M.D. lc/:02/12/2023 14:09:37 ACR BI-RADS Category 6: Known biopsy proven malignancy [id number]
== END ==
PROVIDERS: PCP Family Medicine Sports Medicine; Referring Provider Internal Medicine Hematology & Oncology; Visit Provider Internal Medicine Hematology & Oncology
DX: C50.411 Malignant neoplasm of upper-outer quadrant of right female breast (principal)
CPT/HCPCS: 77049; A9579

== ENCOUNTER → 2023-12-06 09:11 | Outpatient (CLI) | payer MEDICARE, BC, SELFPAY ==
[2023-12-06 09:54] LABS: Influenza A - CEPHEID Flu A NEGATIVE (NEGATIVE); Influenza B - CEPHEID Flu B NEGATIVE (NEGATIVE); Respiratory Syncytial Virus Negative (Negative)
[2023-12-06 10:32] LABS: COVID-19 CEPHEID 4-PLEX PCR Negative (Negative)
== END ==
PROVIDERS: PCP Family Medicine Sports Medicine; Visit Provider Physician Assistant
DX: R05.1 Acute cough (principal)
CPT/HCPCS: 0241U

== ENCOUNTER → 2023-12-06 09:53 | Outpatient (CLI) | payer MEDICARE, BC, SELFPAY ==
--- NOTE | 2023-12-06 09:55 | DI.RAD.S_ITS ---
PROCEDURE: XR CHEST 2V INDICATIONS: Cough, crackles on lower Rt TECHNIQUE: 2 views of the chest were acquired. COMPARISON: [facility], CT, CT LOW DOSE LUNG CA SCREENING, 01/07/2023, 11:26. FINDINGS: Surgical changes and devices: Right axillary clips are seen. Lungs and pleura: Minimal, poorly defined right lower lobe infiltrate can be seen. No pneumothorax or pleural effusions are seen. Mediastinum: Mediastinal contours are normal. Heart size is normal. Bones and chest wall: No suspicious bony abnormalities. Age-appropriate bony degenerative changes are seen. Mac row node levoconvex Soft tissues appear unremarkable. IMPRESSION: Minimal, poorly defined right lower lobe infiltrate can be seen. Postoperative and degenerative changes are seen. Dictated by: Brandon Curtis M.D. on 12/06/2023 at 9:22 Approved by: Brandon Curtis M.D. on 12/06/2023 at 9:23
== END ==
PROVIDERS: PCP Family Medicine Sports Medicine; Visit Provider Physician Assistant
DX: R05.1 Acute cough (principal)
CPT/HCPCS: 0241U; 71046

== ENCOUNTER → 2024-07-16 13:10 | Outpatient (CLI) | payer MEDICARE, BC, SELFPAY | PROVIDERS: PCP Family Medicine Sports Medicine; Visit Provider Registered Nurse | DX: R30.0 Dysuria (principal) | CPT/HCPCS: 87077; 87086; 87186 ==

== ENCOUNTER → 2024-08-12 11:06 | Outpatient (CLI) | payer MEDICARE, BC, SELFPAY | PROVIDERS: PCP Family Medicine Sports Medicine; Visit Provider Nurse Practitioner Family | DX: R30.0 Dysuria (principal) | CPT/HCPCS: 87077; 87086; 87186 ==

== ENCOUNTER 2024-10-17 18:21 | Emergency (ER) | payer MEDICARE, BC, SELFPAY ==
[2024-10-17] VITALS (11 sets, daily range): BP systolic 120–133; BP diastolic 58–72; PULSE 56–63; RESP 16; TEMP 36.8; O2SAT 92–98; BMI 27.8
--- NOTE | 2024-10-17 19:44 | PC.NURSE ---
Addendum entered by Fiorella Dubois R.N. 10/17/24 19:45: See triage for further assessment Original Note: Pt reports having lower back pain following trying to leash dog. States she took arnica and tried lidocaine cream; states she has not tried anything else. Pt reports the apin has been ongoing since 11am.
[2024-10-17] MEDS: ACETAMINOPHEN 325 MG TABLET 975 MG PO (20:17)
--- NOTE | 2024-10-17 20:24 | ED_ITS ---
HPI - Back Pain/Injury General Chief Complaint: Back Pain/Injury Stated Complaint: back pain when leashing dog Time Seen by Provider: 10/17/24 19:00 Source: patient and EMS History of Present Illness HPI Narrative: 69-year-old female without prior back surgeries or interventions, however she has had sacroiliitis apparently in the past, was leaning down trying to leash her dog this afternoon, felt rights SI and sciatic area discomfort, increasing since that time. No weakness to leg. No pain in her calf or heel. No incontinence. No direct blow or fall. No other injuries. She has not tried any medications for this. Related Data Home Medications Medication Instructions Recorded Confirmed multivitamin 2 tab PO DAILY 09/19/21 08/23/24 Mushroom 1 tab DAILY 02/05/23 08/23/24 calcium 500 mg tablet 500 mg DAILY 02/05/23 08/23/24 strontium [id number] 1 tab DAILY 02/05/23 08/23/24 sumatriptan succinate 50 mg tablet 50 mg PO Q2-4H PRN Headache 02/05/23 08/23/24 (Imitrex) anastrozole 1 mg tablet 1 mg PO DAILY 12/06/23 08/23/24 bupropion HCl 150 mg tablet,12 hr mg PO 07/16/24 08/23/24 sustained-release ezetimibe 10 mg tablet 10 mg PO DAILY 07/16/24 08/23/24 Previous Rx's Medication Instructions Recorded cefdinir 300 mg capsule 300 mg PO BID #10 caps 08/12/24 methocarbamol 500 mg tablet 500 mg PO TID 7 days #21 tabs 10/17/24 naproxen 500 mg tablet 500 mg PO BID 7 days #14 tabs 10/17/24 Allergies Allergy/AdvReac Type Severity Reaction Status Date / Time No Known Drug Allergies Allergy Verified 10/17/24 18:22 Patient History Medical History (Updated 10/17/24 @ 21:34 by Anival Beckett MD) Recurrent UTI (urinary tract infection) History of breast cancer in female Brain tumor (benign) (~2015) Depression Surgical History History of cataract extraction with lens replacement Social History household members: spouse Smoking Status: Former smoker alcohol intake: never Smoking Status: Former smoker Exam Narrative Exam Narrative: GENERAL: Well-developed patient, in mild distress. HEAD: Atraumatic. Normocephalic. EYES: Pupils equal round and reactive. Extraocular motions intact. No scleral icterus. No injection or drainage. ENT: Nose without bleeding, purulent drainage. Throat without erythema, tonsillar hypertrophy or exudate. Airway patent. NECK: Trachea midline. Non tender CARDIOVASCULAR: Regular rate and rhythm without murmurs, gallops, or rubs. RESPIRATORY: Clear to auscultation. Breath sounds equal bilaterally. No wheezes, rales, or rhonchi. GASTROINTESTINAL: Abdomen soft, non-tender, nondistended. EXTREMITIES: No edema or joint tenderness. BACK: Nontender without deformity or crepitance. No flank tenderness. No tenderness to lumbar midline or paraspinous musculature. Some tenderness along right sciatic groove and right SI joint area. No skin changes or bruises or abrasions. No vesicles or skin rash changes. NEURO: AOx3. Motor functions grossly nonfocal. Straight leg raise 30? active, passively to 45? right lower extremity without lower extremity pain or dis comfort. Straight active leg raise 60? left side with that discomfort on right or left side. SKIN: No rash or erythema of visible areas Initial Vital Signs Initial Vital Signs: Vital Signs Temperature 98.3 F 10/17/24 18:22 Pulse Rate 61 10/17/24 18:22 Respiratory Rate 16 10/17/24 18:22 Blood Pressure 133/63 10/17/24 18:22 Pulse Oximetry 96 10/17/24 18:22 Oxygen Delivery Method Room Air 10/17/24 18:22 Course Orders Ordered: ED Orders 10/17/24 21:02 CT pelvis wo con Stat Discontinued Medications Acetaminophen (Acetaminophen 325 Mg Tablet) 975 mg PO NOW ONE Stop: 10/17/24 20:14 Last Admin: 10/17/24 20:17 Dose: 975 mg Documented By: RONAK Ketorolac Tromethamine (Ketorolac 30 Mg/Ml Vial) 30 mg IM NOW ONE Stop: 10/17/24 21:25 Last Admin: 10/17/24 21:43 Dose: 30 mg Documented By: Methocarbamol (Methocarbamol 500 Mg Tablet) 500 mg PO NOW ONE Stop: 10/17/24 21:25 Last Admin: 10/17/24 21:42 Dose: 500 mg Documented By: AB Vital Signs Vital signs: Vital Signs - 8 hr 10/17/24 18:22 10/17/24 18:23 10/17/24 18:24 Temperature 98.3 F Pulse Rate 61 63 Respiratory Rate 16 Blood Pressure 133/63 133/63 Pulse Oximetry 96 96 Oxygen Delivery Method Room Air 10/17/24 18:30 10/17/24 18:30 10/17/24 19:00 Temperature Pulse Rate 63 62 Respiratory Rate Blood Pressure 133/67 Pulse Oximetry 94 92 Oxygen Delivery Method 10/17/24 19:01 10/17/24 19:01 10/17/24 19:30 Temperature Pulse Rate 62 Respiratory Rate Blood Pressure 120/58 L 128/60 Pulse Oximetry 93 Oxygen Delivery Method 10/17/24 19:30 10/17/24 20:00 10/17/24 20:00 Temperature Pulse Rate 61 63 Respiratory Rate Blood Pressure 122/72 Pulse Oximetry 93 96 Oxygen Delivery Method 10/17/24 20:30 10/17/24 20:30 10/17/24 21:00 Temperature Pulse Rate 62 56 L Respiratory Rate Blood Pressure 127/60 Pulse Oximetry 93 98 Oxygen Delivery Method 10/17/24 21:30 Temperature Pulse Rate 60 Respiratory Rate Blood Pressure Pulse Oximetry 96 Oxygen Delivery Method Room Air MDM - Back Pain/Injury MDM Narrative Medical decision making narrative: 69-year-old female reports history of osteoporosis, leaning over today lesion h er dog has persistent and increasing right-sided SI area discomfort. No previous surgeries or interventions in that area. No numbness or weakness to her leg. No incontinence. Mild tenderness to the right SI joint and right sciatic groove area on examination, no skin changes. No paraspinal or midline lumbar spine changes. Patient concerned about osteoporosis, we would like imaging. CT pelvis ordered. CT pelvis showed no acute changes. See radiology report. IM Toradol, oral Robaxin. Patient had some improvement and has a ride home. She would like to go home. Prescription for naproxen and for further methocarbamol/Robaxin muscle relaxant to use if needed. Recheck advised if not improving early this week, with her regular doctor. Return precautions discussed. Discharge Plan Departure Patient Disposition: Home Clinical Impression: Right sided sciatica Instructions: DI for Sciatica Activity Restrictions/Additional Instructions: History of prior low back pain but no injuries or surgeries. Right-sided buttock sacroiliac area discomfort after leaning down to leash your dog this afternoon. Some tenderness in that area of the right sacroiliac joint area, and also along the right sciatic groove of the buttock on that side. No skin changes or bruises or rashes. We discussed imaging, preferred, CT pelvis imaging was ordered, no acute changes per Radiology report. Intramuscular Toradol anti-inflammatory pain medication given. Muscle relaxant oral Robaxin/methocarbamol given. Trial of anti-inflammatory and muscle relaxant as follow up. Recheck symptoms with your regular doctor early this next week if not improving. Return to this/nearest emergency department for any change worsening symptoms or any concerns prior. Prescriptions: New methocarbamol 500 mg tablet 500 mg PO TID 7 Days Qty: 21 0RF naproxen 500 mg tablet 500 mg PO BID 7 Days Qty: 14 0RF No Action ezetimibe 10 mg tablet 10 mg PO DAILY bupropion HCl 150 mg tablet sustained-release 12 hr PO anastrozole 1 mg tablet 1 mg PO DAILY cefdinir 300 mg capsule 300 mg PO BID Qty: 10 0RF multivitamin Tablet 2 tab PO DAILY Patient Comments: ritual multivitamin sumatriptan succinate [Imitrex] 50 mg Tablet 50 mg PO Q2-4H PRN (Reason: Headache) Rx Instructions: do not exceed 4 doses per 24 hrs calcium 500 mg Tablet 500 mg DAILY Mushroom 1 tab DAILY strontium [id number] 1 tab DAILY Referrals: Satnam Curiel MD [Primary Care Provider] - Stand Alone Forms: Patient Portal/API/Survey
--- NOTE | 2024-10-17 21:02 | DI.CT.S_ITS ---
PROCEDURE: CT PEL WO CON INDICATIONS: twist injury, R SI area pain, prefers imaging TECHNIQUE: Noncontrast 3 mm axial sections acquired through the bony pelvis, with coronal and sagittal reformatting. COMPARISON: None. FINDINGS: Image quality: Diagnostic Bones: No sacroiliac dislocation. There are mild osteophytes and degenerative changes without ankylosis. Partially seen [id number] lower lumbar spondylosis also present. No pubic diastasis. Congruent hip joints. No displaced hip fracture. Background mild hip arthrosis. Soft tissues: Intrapelvic structures are not well assessed on this study. No gross abnormality identified. No fluid collection in the pelvic wall. IMPRESSION: No acute osseous abnormality. Background degenerative changes are present. If there is high concern for further derangement, consider MRI evaluation. Dictated by: Robin Sawant M.D. on 10/17/2024 at 21:20 Approved by: Robin Sawant M.D. on 10/17/2024 at 21:22
[2024-10-17] MEDS: methocarbamoL 500 MG TABLET PO (21:42)
[2024-10-17] MEDS: KETOROLAC 30 MG/ML VIAL IM (21:43)
== END 2024-10-17 21:56 | disposition home or self-care (01) ==
PROVIDERS: Emergency Provider Emergency Medicine; Family Provider Family Medicine Sports Medicine; PCP Family Medicine Sports Medicine
DX: M54.31 Sciatica, right side (principal); X50.1XXA Overexertion from prolonged static or awkward postures, initial encounter; Y93.89 Activity, other specified; Z87.39 Personal history of other diseases of the musculoskeletal system and connective tissue
CPT/HCPCS: 72192; 96372; 99283; 99284; J1885

== ENCOUNTER 2024-11-02 13:00 | Outpatient (RCR) | payer MEDICARE, BC, SELFPAY ==
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
--- NOTE | 2024-10-12 13:30 | PT.OTN ---
Current Diagnoses Pelvic muscle wasting (10/12/24) Full incontinence of feces (10/12/24) Urgency of urination (10/12/24) Personal history of urinary (tract) infections (10/12/24) Physical Therapy Treatment Note PT-OP-A Visit Information Start: 10/05/24 10:37 Freq: Status: Active Protocol: Document 10/12/24 11:30 [facility] (Rec: 10/13/24 13:28 [facility] [id number]) Out-Patient Physical Therapy Visit Information Visit Information Visit Type Treatment Note Visit Start Time 11:30 Visit Stop Time 12:15 Visit Number 2 PT-OP-B Current Condition Start: 10/05/24 10:37 Freq: Status: Active Protocol: Document 10/05/24 11:30 [facility] (Rec: 10/05/24 11:56 [facility] [id number]) Current Condition History of Current Condition Onset Date recent onset of fecal incontinence in the past year, chronic vaginal pain Current Complaints recurrent UTI's, fecal and urinary incontinence History of Current Condition pt notes a few years ago she found out she had vaginal atrophy and she started experiencing pain with intercourse, it is has been like that for 10 years. Recently she has had a lot of UTI's and she didn't realize they were UIT's as the pain she was feeling was a cramping in her vaginal wall. The pain occered during and after voiding and would then subside She then developed urinary incontinence and now she is experiencing fecal incontinence. If she picks up her dog or goes for a walk she will experience bowel leakage. She has a history of constipation but she is taking probiotics now and that is really helping. Fluid intake: pt notes in the am she drinks a lot of coffee and in the afternoon sparkling water. We discussed drinking a glass of water first thing in the am Prior Treatments and Tests hx of breast cancer 2 years ago, she had radiation and is now on a estrogen yousuf PT-OP-C Subjective Start: 10/12/24 11:32 Freq: Status: Active Protocol: Document 10/12/24 11:32 [facility] (Rec: 10/12/24 12:25 [facility] [id number]) OP-PT Subjective Patient Comments Patient Comments pt is starting her day with two glasses of water, she is still having her 1/2 pot of coffee She notes her chief complaint is the fecal incontinence. She notes she went grocery shopping and noticed when she got home she had fecal leakage and she was not aware of it PT-OP-F Manual Assessment Start: 10/05/24 10:37 Freq: Status: Active Protocol: Document 10/05/24 11:30 [facility] (Rec: 10/05/24 13:19 [facility] [id number]) Manual Assessments Soft Tissue Assessment Soft Tissue Mobility Assessment tightness and guarding in the left lateral wall of the levator ani Other Manual Assessments Other Manual Assessments swelling noted around the urethra PT-OP-I Pelvic Floor Start: 10/05/24 10:37 Freq: Status: Active Protocol: Document 10/05/24 11:30 [facility] (Rec: 10/05/24 13:19 [facility] [id number]) Pelvic Floor Assessment Urine Pelvic Floor Surgery No Urinary Symptoms Urge Sensation Other Urinary Symptoms urinary and fecal incontinence symptoms, pt notes the fecal incontinence is newer and she feels that she fully empties her bowels but then will go for a walk or lift something heavy and notes she will experience fecal leakage. history of frequency UTI's with reports of 8 UTI's in the past week Leakage Size Small Leakage Cause Exercise,Lifting,Urge Leaks Per Day 2 Voiding Frequency 8 times per day Nocturia 2 Urine Pad Type Maxi Pad Pelvic Clock Pelvic Clock 12-3 Tightness Pelvic Clock 3-6 Guarding,Tightness Pelvic Clock Other left lateral wall of the levator ani guarding and tightness Contraction Ability Voluntary Contraction Weak Voluntary Relaxation Weak Manual Muscle Testing Left 1 Manual Muscle Testing Right 1 Manual Muscle Testing Anterior 1 Manual Muscle Testing Posterior 1 Muscle Endurance (Seconds) 5 PT-OP-M Strength Start: 10/05/24 10:37 Freq: Status: Active Protocol: Document 10/05/24 11:30 [facility] (Rec: 10/05/24 16:45 [facility] [id number]) Trunk Strength Trunk Manual Muscle Testing Testing Position Supine Flexion 3 Fair Core Stabilization decreased core stabilization and pts ability to engage the transverse abdominal musculature PT-OP-Q Treatments Start: 10/05/24 10:37 Freq: Status: Active Protocol: Document 10/12/24 11:32 [facility] (Rec: 10/12/24 12:25 [facility] [id number]) Therapeutic Exercises Supine Exercises pelvic floor long holds Reps/Minutes 10 reps holding 10 seconds and relaxing 10 seconds Comments average 7.6 average and max of 14.4 Self-Care/Home Management Treatment Education Other Education bladder diary was reviewed and Yvette was given a new diary as she only completed 2 days. She has been trying to increase her water. She was instructed on the urge deference technique PT-OP-T Assessment and Plan Start: 10/05/24 10:37 Freq: Status: Active Protocol: Document 10/12/24 11:30 [facility] (Rec: 10/13/24 13:28 [facility] [id number]) Physical Therapy Assessment Goals 3 Impairment pelvic floor weakness and decreased endurance Short Term Goal (STG) Yvette is able to sustain a pelvic floor muscle contraction x 10 seconds in supine STG Duration 5 weeks Snf Goal (LTG) Yvette presents with improved strength of the pelvic floor with 3/5 MMT or better for all morin of the levator ani LTG Duration 8 weeks+ 2 Impairment urinary incontinence worse with a strong urge to void and light acitivity with pt leaking 1-2 times per day and wearing maxi pads Snf Goal (LTG) Yvette reports a overall reduction of urinary incontinence symptoms 1 Impairment fecal incontinence symptoms Short Term Goal (STG) Yvette is educated in toileting strategies to fully empty her bowels as well as splinting at the perineum to encourage fullly emptying. Yvette is educated on pelvic floor strengthening exercises to help improve support to the rectum STG Duration 4 weeks Cigarette Carton Sealer Goal (LTG) Yvette reports a overall reduction of fecal leakage LTG Duration 8 weeks Assessment Summary Assessment pt was educated in urge deference technique and bladder retraining today splinting for the perienum was reviewed. Yvette notes her chief complaint is the fecal soiling. We discussed trying to fully empty her bowel with the perineum splinting and pelvic floor endurance training was initiated. Yvette is limited with pelvic floor endurance and would benefit from continued training. She tolerated today's visit well Physical Therapy Plan Frequency and Duration Frequency of Treatment 1x/Week Duration of treatment (weeks) 8 Plan of Care Start Date 10/05/24 Plan of Care End Date 11/30/24 Therapeutic Interventions Therapeutic Interventions Home Exercise Program, Neuromuscular Re-education, Patient/Caregiver Education, Self-Care/Home Management,Soft Tissue Mobilization, Therapeutic Exercises Modalities Biofeedback Next Visit Focus/Plan Next Note Type Treatment Note Next Visit Plan progress pelvic floor endurance training, begin working on hip lateral rotation and adductor assist
--- NOTE | 2024-10-26 16:00 | PT.OTN ---
Current Diagnoses Pelvic muscle wasting (10/26/24) Full incontinence of feces (10/26/24) Urgency of urination (10/26/24) Personal history of urinary (tract) infections (10/26/24) Physical Therapy Treatment Note PT-OP-A Visit Information Start: 10/05/24 10:37 Freq: Status: Active Protocol: Document 10/26/24 13:48 [facility] (Rec: 10/26/24 14:25 [facility] [id number]) Out-Patient Physical Therapy Visit Information Visit Information Visit Type Treatment Note Visit Start Time 13:45 Visit Stop Time 14:30 Visit Number 3 PT-OP-B Current Condition Start: 10/05/24 10:37 Freq: Status: Active Protocol: Document 10/05/24 11:30 [facility] (Rec: 10/05/24 11:56 [facility] [id number]) Current Condition History of Current Condition Onset Date recent onset of fecal incontinence in the past year, chronic vaginal pain Current Complaints recurrent UTI's, fecal and urinary incontinence History of Current Condition pt notes a few years ago she found out she had vaginal atrophy and she started experiencing pain with intercourse, it is has been like that for 10 years. Recently she has had a lot of UTI's and she didn't realize they were UIT's as the pain she was feeling was a cramping in her vaginal wall. The pain occered during and after voiding and would then subside She then developed urinary incontinence and now she is experiencing fecal incontinence. If she picks up her dog or goes for a walk she will experience bowel leakage. She has a history of constipation but she is taking probiotics now and that is really helping. Fluid intake: pt notes in the am she drinks a lot of coffee and in the afternoon sparkling water. We discussed drinking a glass of water first thing in the am Prior Treatments and Tests hx of breast cancer 2 years ago, she had radiation and is now on a estrogen yousuf PT-OP-C Subjective Start: 10/12/24 11:32 Freq: Status: Active Protocol: Document 10/26/24 13:48 [facility] (Rec: 10/26/24 14:25 [facility] [id number]) OP-PT Subjective Patient Comments Patient Comments pt had severe back spasms last week on friday and she went to the ER and they gave her a muscle relaxor and naproxen. SHe hasn't done a lot of her exercises She has chaged her habits as far as intake 20 0oz prior to coffee PT-OP-F Manual Assessment Start: 10/05/24 10:37 Freq: Status: Active Protocol: Document 10/05/24 11:30 [facility] (Rec: 10/05/24 13:19 [facility] [id number]) Manual Assessments Soft Tissue Assessment Soft Tissue Mobility Assessment tightness and guarding in the left lateral wall of the levator ani Other Manual Assessments Other Manual Assessments swelling noted around the urethra PT-OP-I Pelvic Floor Start: 10/05/24 10:37 Freq: Status: Active Protocol: Document 10/05/24 11:30 [facility] (Rec: 10/05/24 13:19 [facility] [id number]) Pelvic Floor Assessment Urine Pelvic Floor Surgery No Urinary Symptoms Urge Sensation Other Urinary Symptoms urinary and fecal incontinence symptoms, pt notes the fecal incontinence is newer and she feels that she fully empties her bowels but then will go for a walk or lift something heavy and notes she will experience fecal leakage. history of frequency UTI's with reports of 8 UTI's in the past week Leakage Size Small Leakage Cause Exercise,Lifting,Urge Leaks Per Day 2 Voiding Frequency 8 times per day Nocturia 2 Urine Pad Type Maxi Pad Pelvic Clock Pelvic Clock 12-3 Tightness Pelvic Clock 3-6 Guarding,Tightness Pelvic Clock Other left lateral wall of the levator ani guarding and tightness Contraction Ability Voluntary Contraction Weak Voluntary Relaxation Weak Manual Muscle Testing Left 1 Manual Muscle Testing Right 1 Manual Muscle Testing Anterior 1 Manual Muscle Testing Posterior 1 Muscle Endurance (Seconds) 5 PT-OP-M Strength Start: 10/05/24 10:37 Freq: Status: Active Protocol: Document 10/05/24 11:30 [facility] (Rec: 10/05/24 16:45 [facility] [id number]) Trunk Strength Trunk Manual Muscle Testing Testing Position Supine Flexion 3 Fair Core Stabilization decreased core stabilization and pts ability to engage the transverse abdominal musculature PT-OP-Q Treatments Start: 10/05/24 10:37 Freq: Status: Active Protocol: Document 10/26/24 13:48 [facility] (Rec: 10/26/24 14:25 [facility] [id number]) Therapeutic Exercises Supine Exercises quick pelvic floor contractions Reps/Minutes 10 reps holding 2 sec relaxing 2 sec pelvic floor long holds Reps/Minutes 10 reps holding 10 seconds and relaxing 10 seconds Comments 13.1 average and 20 max Sidelying Exercises sidelying pelvic floor with ball squeeze Reps/Minutes 10 reps holding 5 seconds and relaxing 10 seconds Self-Care/Home Management Treatment Education Patient Education Home Exercise Program Other Education Urge deference technique was reviewed and bladder diary was reviewed. Pt has been trying to increase her water intake and decrease caffiene PT-OP-T Assessment and Plan Start: 10/05/24 10:37 Freq: Status: Active Protocol: Document 10/26/24 13:48 [facility] (Rec: 10/26/24 14:25 [facility] [id number]) Physical Therapy Assessment Goals 3 Impairment pelvic floor weakness and decreased endurance Short Term Goal (STG) Yvette is able to sustain a pelvic floor muscle contraction x 10 seconds in supine STG Duration 5 weeks Director Of Marketing Operations Goal (LTG) Yvette presents with improved strength of the pelvic floor with 3/5 MMT or better for all morin of the levator ani LTG Duration 8 weeks+ 2 Impairment urinary incontinence worse with a strong urge to void and light acitivity with pt leaking 1-2 times per day and wearing maxi pads Longterm Goal (LTG) Yvette reports a overall reduction of urinary incontinence symptoms 1 Impairment fecal incontinence symptoms Short Term Goal (STG) Yvette is educated in toileting strategies to fully empty her bowels as well as splinting at the perineum to encourage fullly emptying. Yvette is educated on pelvic floor strengthening exercises to help improve support to the rectum STG Duration 4 weeks Longterm Goal (LTG) Yvette reports a overall reduction of fecal leakage LTG Duration 8 weeks Physical Therapy Plan Frequency and Duration Frequency of Treatment 1x/Week Duration of treatment (weeks) 8 Plan of Care Start Date 10/05/24 Plan of Care End Date 11/30/24 Next Visit Focus/Plan Next Note Type Treatment Note Next Visit Plan add in hip abduction and ER for strength of the the lateral hip and side morin of the pelvic floor, continue with pelvic floor endurance training
--- NOTE | 2024-11-02 13:35 | PT.OTN ---
Current Diagnoses Pelvic muscle wasting (11/02/24) Full incontinence of feces (11/02/24) Urgency of urination (11/02/24) Personal history of urinary (tract) infections (11/02/24) Physical Therapy Treatment Note PT-OP-A Visit Information Start: 10/05/24 10:37 Freq: Status: Active Protocol: Document 11/02/24 13:01 [facility] (Rec: 11/02/24 13:35 [facility] [id number]) Out-Patient Physical Therapy Visit Information Visit Information Visit Type Treatment Note Visit Note pt needed to leave appt early to take her son [place] the airport Visit Start Time 13:00 Visit Stop Time 13:30 Visit Number 4 PT-OP-B Current Condition Start: 10/05/24 10:37 Freq: Status: Active Protocol: Document 10/05/24 11:30 [facility] (Rec: 10/05/24 11:56 [facility] [id number]) Current Condition History of Current Condition Onset Date recent onset of fecal incontinence in the past year, chronic vaginal pain Current Complaints recurrent UTI's, fecal and urinary incontinence History of Current Condition pt notes a few years ago she found out she had vaginal atrophy and she started experiencing pain with intercourse, it is has been like that for 10 years. Recently she has had a lot of UTI's and she didn't realize they were UIT's as the pain she was feeling was a cramping in her vaginal wall. The pain occered during and after voiding and would then subside She then developed urinary incontinence and now she is experiencing fecal incontinence. If she picks up her dog or goes for a walk she will experience bowel leakage. She has a history of constipation but she is taking probiotics now and that is really helping. Fluid intake: pt notes in the am she drinks a lot of coffee and in the afternoon sparkling water. We discussed drinking a glass of water first thing in the am Prior Treatments and Tests hx of breast cancer 2 years ago, she had radiation and is now on a estrogen yousuf PT-OP-C Subjective Start: 10/12/24 11:32 Freq: Status: Active Protocol: Document 11/02/24 13:01 [facility] (Rec: 11/02/24 13:35 [facility] [id number]) OP-PT Subjective Patient Comments Patient Comments pt notes her back spams are pretty much gone, she is trying not to bend She did have a little of fecal incontinence today bladder leakage is a little better PT-OP-F Manual Assessment Start: 10/05/24 10:37 Freq: Status: Active Protocol: Document 10/05/24 11:30 [facility] (Rec: 10/05/24 13:19 [facility] [id number]) Manual Assessments Soft Tissue Assessment Soft Tissue Mobility Assessment tightness and guarding in the left lateral wall of the levator ani Other Manual Assessments Other Manual Assessments swelling noted around the urethra PT-OP-I Pelvic Floor Start: 10/05/24 10:37 Freq: Status: Active Protocol: Document 10/05/24 11:30 [facility] (Rec: 10/05/24 13:19 [facility] [id number]) Pelvic Floor Assessment Urine Pelvic Floor Surgery No Urinary Symptoms Urge Sensation Other Urinary Symptoms urinary and fecal incontinence symptoms, pt notes the fecal incontinence is newer and she feels that she fully empties her bowels but then will go for a walk or lift something heavy and notes she will experience fecal leakage. history of frequency UTI's with reports of 8 UTI's in the past week Leakage Size Small Leakage Cause Exercise,Lifting,Urge Leaks Per Day 2 Voiding Frequency 8 times per day Nocturia 2 Urine Pad Type Maxi Pad Pelvic Clock Pelvic Clock 12-3 Tightness Pelvic Clock 3-6 Guarding,Tightness Pelvic Clock Other left lateral wall of the levator ani guarding and tightness Contraction Ability Voluntary Contraction Weak Voluntary Relaxation Weak Manual Muscle Testing Left 1 Manual Muscle Testing Right 1 Manual Muscle Testing Anterior 1 Manual Muscle Testing Posterior 1 Muscle Endurance (Seconds) 5 PT-OP-M Strength Start: 10/05/24 10:37 Freq: Status: Active Protocol: Document 10/05/24 11:30 [facility] (Rec: 10/05/24 16:45 [facility] [id number]) Trunk Strength Trunk Manual Muscle Testing Testing Position Supine Flexion 3 Fair Core Stabilization decreased core stabilization and pts ability to engage the transverse abdominal musculature PT-OP-Q Treatments Start: 10/05/24 10:37 Freq: Status: Active Protocol: Document 11/02/24 13:01 [facility] (Rec: 11/02/24 13:35 [facility] [id number]) Therapeutic Exercises Supine Exercises quick pelvic floor contractions Reps/Minutes 10 reps holding 2 sec relaxing 2 sec pelvic floor long holds Reps/Minutes 10 reps holding 10 seconds and relaxing 10 seconds Comments 21.0 average max of 86 Sidelying Exercises sidelying clam shells Reps/Minutes 10 each Comments pt to work up to 3x 10 reps PT-OP-T Assessment and Plan Start: 10/05/24 10:37 Freq: Status: Active Protocol: Document 11/02/24 13:01 [facility] (Rec: 11/02/24 13:35 [facility] [id number]) Physical Therapy Assessment Goals 3 Impairment pelvic floor weakness and decreased endurance Short Term Goal (STG) Yvette is able to sustain a pelvic floor muscle contraction x 10 seconds in supine STG Duration 5 weeks Correction Goal (LTG) Yvette presents with improved strength of the pelvic floor with 3/5 MMT or better for all morin of the levator ani LTG Duration 8 weeks+ 2 Impairment urinary incontinence worse with a strong urge to void and light acitivity with pt leaking 1-2 times per day and wearing maxi pads Correction Goal (LTG) Yvette reports a overall reduction of urinary incontinence symptoms 1 Impairment fecal incontinence symptoms Short Term Goal (STG) Yvette is educated in toileting strategies to fully empty her bowels as well as splinting at the perineum to encourage fully emptying. Yvette is educated on pelvic floor strengthening exercises to help improve support to the rectum STG Duration 4 weeks Correction Goal (LTG) Yvette reports a overall reduction of fecal leakage LTG Duration 8 weeks Assessment Summary Assessment Pt needed to leave appt early to take her son to the airport . I was able to add in clam shells and she is showing good progress with her pelvic floor endurance training. Physical Therapy Plan Frequency and Duration Frequency of Treatment 1x/Week Duration of treatment (weeks) 8 Plan of Care Start Date 10/05/24 Plan of Care End Date 11/30/24 Therapeutic Interventions Therapeutic Interventions Home Exercise Program, Neuromuscular Re-education, Patient/Caregiver Education, Self-Care/Home Management,Soft Tissue Mobilization, Therapeutic Exercises Modalities Biofeedback Next Visit Focus/Plan Next Note Type Treatment Note Next Visit Plan review all exercises and beging eccentric strengthening of the pelvic floor next visit
--- NOTE | 2024-11-25 14:55 | PT-OP ANOTE ---
pt NS today and I called and left a voice mail that this was her last sheduled visit and that she had missed it. She had cx the previous visit as well so I let her know that I would DC her chart unless I heard from her.
--- NOTE | 2024-12-01 13:24 | PT.OPDS ---
Current Diagnoses Pelvic muscle wasting (11/02/24) Full incontinence of feces (11/02/24) Urgency of urination (11/02/24) Personal history of urinary (tract) infections (11/02/24) Visit Care Team Role Provider Type Satnam Curiel MD Family Provider Non-Staff Primary Care Provider Specialty: Family Practice Address: [address] [place], [address] Email: Kaley Inman DO Attending Provider Physician Referring Provider Specialty: PRACTICE ARCHITECT Address: [address] [place] [address], [facility] [address], [place], [address] Email: [email or web address] Number Visit Number 4 Discharge Summary PT-OP-B Current Condition Start: 10/05/24 10:37 Freq: Status: Active Protocol: Document 10/05/24 11:30 [facility] (Rec: 10/05/24 11:56 [facility] [id number]) Current Condition History of Current Condition Onset Date recent onset of fecal incontinence in the past year, chronic vaginal pain Current Complaints recurrent UTI's, fecal and urinary incontinence History of Current Condition pt notes a few years ago she found out she had vaginal atrophy and she started experiencing pain with intercourse, it is has been like that for 10 years. Recently she has had a lot of UTI's and she didn't realize they were UIT's as the pain she was feeling was a cramping in her vaginal wall. The pain occered during and after voiding and would then subside She then developed urinary incontinence and now she is experiencing fecal incontinence. If she picks up her dog or goes for a walk she will experience bowel leakage. She has a history of constipation but she is taking probiotics now and that is really helping. Fluid intake: pt notes in the am she drinks a lot of coffee and in the afternoon sparkling water. We discussed drinking a glass of water first thing in the am Prior Treatments and Tests hx of breast cancer 2 years ago, she had radiation and is now on a estrogen yousuf PT-OP-C Subjective Start: 10/12/24 11:32 Freq: Status: Active Protocol: Document 11/02/24 13:01 [facility] (Rec: 11/02/24 13:35 [facility] [id number]) OP-PT Subjective Patient Comments Patient Comments pt notes her back spams are pretty much gone, she is trying not to bend She did have a little of fecal incontinence today bladder leakage is a little better PT-OP-F Manual Assessment Start: 10/05/24 10:37 Freq: Status: Active Protocol: Document 10/05/24 11:30 [facility] (Rec: 10/05/24 13:19 [facility] [id number]) Manual Assessments Soft Tissue Assessment Soft Tissue Mobility Assessment tightness and guarding in the left lateral wall of the levator ani Other Manual Assessments Other Manual Assessments swelling noted around the urethra PT-OP-I Pelvic Floor Start: 10/05/24 10:37 Freq: Status: Active Protocol: Document 10/05/24 11:30 [facility] (Rec: 10/05/24 13:19 [facility] [id number]) Pelvic Floor Assessment Urine Pelvic Floor Surgery No Urinary Symptoms Urge Sensation Other Urinary Symptoms urinary and fecal incontinence symptoms, pt notes the fecal incontinence is newer and she feels that she fully empties her bowels but then will go for a walk or lift something heavy and notes she will experience fecal leakage. history of frequency UTI's with reports of 8 UTI's in the past week Leakage Size Small Leakage Cause Exercise,Lifting,Urge Leaks Per Day 2 Voiding Frequency 8 times per day Nocturia 2 Urine Pad Type Maxi Pad Pelvic Clock Pelvic Clock 12-3 Tightness Pelvic Clock 3-6 Guarding,Tightness Pelvic Clock Other left lateral wall of the levator ani guarding and tightness Contraction Ability Voluntary Contraction Weak Voluntary Relaxation Weak Manual Muscle Testing Left 1 Manual Muscle Testing Right 1 Manual Muscle Testing Anterior 1 Manual Muscle Testing Posterior 1 Muscle Endurance (Seconds) 5 PT-OP-M Strength Start: 10/05/24 10:37 Freq: Status: Active Protocol: Document 10/05/24 11:30 [facility] (Rec: 10/05/24 16:45 [facility] [id number]) Trunk Strength Trunk Manual Muscle Testing Testing Position Supine Flexion 3 Fair Core Stabilization decreased core stabilization and pts ability to engage the transverse abdominal musculature PT-OP-T Assessment and Plan Start: 10/05/24 10:37 Freq: Status: Active Protocol: Document 12/01/24 13:23 [facility] (Rec: 12/01/24 13:24 [facility] [id number]) Physical Therapy Assessment Assessment Summary Assessment Yvette has cancelled and then no showed her last 2 visits in PT. I did leave her a message but did not hear back from her for further PT visits . At this point she will be discharged from PT Physical Therapy Plan Discharge Physical Therapy Discharge Reasons No Longer Attending PT
== END 2024-12-02 10:09 | disposition home or self-care (01) ==
LOC: PHYS 13:00
PROVIDERS: Family Provider Family Medicine Sports Medicine; PCP Family Medicine Sports Medicine; Referring Provider Student in an Organized Health Care Education/Training Program; Visit Provider Student in an Organized Health Care Education/Training Program
DX: R15.9 Full incontinence of feces (principal); N81.84 Pelvic muscle wasting; R39.15 Urgency of urination; Z87.440 Personal history of urinary (tract) infections
CPT/HCPCS: 97110; 97161; 97535

== ENCOUNTER → 2024-12-18 08:13 | Outpatient (CLI) | payer MEDICARE, BC, SELFPAY ==
--- NOTE | 2024-12-18 08:15 | DI.RAD.S_ITS ---
PROCEDURE: XR KNEE LT 3V INDICATIONS: Left knee pain TECHNIQUE: 3 views of the knee were acquired. COMPARISON: [facility], , XR KNEE LT 3V, 08/06/2022, 9:21. FINDINGS: Diffuse osseous demineralization. No acute fracture or dislocation. Small joint effusion. The joint spaces are preserved. IMPRESSION: No acute fracture or dislocation of the left knee. Dictated by: Berlin Rosenberg M.D. on 12/18/2024 at 8:56 Approved by: Berlin Rosenberg M.D. on 12/18/2024 at 8:57
== END ==
PROVIDERS: Family Provider Family Medicine Sports Medicine; PCP Family Medicine; Referring Provider Physician Assistant Surgical; Visit Provider Physician Assistant Surgical
DX: M25.562 Pain in left knee (principal); M25.462 Effusion, left knee
CPT/HCPCS: 73562

== ENCOUNTER → 2024-12-23 09:14 | Outpatient (CLI) | payer MEDICARE, BC, SELFPAY ==
--- NOTE | 2024-12-23 09:15 | DI.MG.S_ITS ---
MM screening mammo BI: 12/23/2024. BI-RADS: 2 CLINICAL: 69-year old female for bilateral screening mammogram. No Tyrer-Cuzick risk score calculation due to the patient's personal history of breast cancer. Patient reports a history of right breast carcinoma diagnosed at age 67. Status-post right lumpectomy with radiation therapy and hormonal therapy. Current reported family history of breast cancer: mother. The patient had a prior right breast biopsy. PRIOR EXAMS 12/22/2023, 03/10/2023, 02/12/2023, 01/27/2023, 01/13/2023, 12/20/2022, 07/17/2021. MAMMOGRAPHY TECHNIQUE: 2D and 3D (tomosynthesis) digital mammographic views obtained, with additional images as needed for full coverage. Current study was also evaluated with a Computer Aided Detection (CAD) system. DENSITY C. The breasts are heterogeneously dense, which may obscure small masses. MAMMOGRAPHY FINDINGS Right: Benign-appearing post-surgical changes noted on the right. There are no suspicious masses, calcifications, or other findings in the breast. Left: No suspicious mass, asymmetry, microcalcification, or other abnormality seen. IMPRESSION: Right * No evidence of malignancy with benign findings. Left * No evidence of malignancy. RECOMMENDATIONS Bilateral * Annual screening mammography. OVERALL ASSESSMENT CATEGORY BI-RADS-2: Benign. The [employer] recommends annual screening mammography beginning at age 40 for women with average risk of breast cancer. ELECTRONICALLY SIGNED: Mary Jane Mcclellan M.D. on 12/27/2024 at 12:46:46 AM PT Interpreting Station ID: [id number]
== END ==
LOC: MAMMO 09:15
PROVIDERS: Family Provider Family Medicine Sports Medicine; PCP Family Medicine; Referring Provider Family Medicine; Visit Provider Family Medicine
DX: Z12.31 Encounter for screening mammogram for malignant neoplasm of breast (principal); Z85.3 Personal history of malignant neoplasm of breast; R92.333 Mammographic heterogeneous density, bilateral breasts; Z80.3 Family history of malignant neoplasm of breast
CPT/HCPCS: 77063; 77067

== ENCOUNTER → 2025-08-10 09:31 | Outpatient (CLI) | payer MEDICARE, BC, SELFPAY | PROVIDERS: PCP Student in an Organized Health Care Education/Training Program; Visit Provider Physician Assistant | DX: R30.0 Dysuria (principal) | CPT/HCPCS: 87086 ==

== ENCOUNTER → 2025-08-10 10:34 | Outpatient (CLI) | payer MEDICARE, BC, SELFPAY ==
[2025-08-10 11:03] LABS: Add Manual Diff / Slide Review NO; Hematocrit 38.6 % (36-46); Hemoglobin 13.2 g/dL (12.0-16.0); Lymphocytes Absolute Auto 1000 /uL (1100-4500); Mean Corpuscular HGB Conc 34.2 % (30-36); Mean Corpuscular Hemoglobin 31.3 PG (26-34); Mean Corpuscular Volume 91.6 fL (80-100); Platelet Count 252 X10^3/uL (150-400)
[2025-08-10 11:31] LABS: Alanine Aminotransferase 19 IU/L (<35); Albumin 4.4 g/dL (3.5-5.0); Albumin Globulin Ratio 1.8 (1.0-2.8); Alkaline Phosphatase 46 U/L (38-126); Blood Urea Nitrogen 18 mg/dL (7-17); Calcium 8.8 mg/dL (8.4-10.2); Carbon Dioxide 26 mmol/L (22-32); Chloride 105 mmol/L (98-107); Estimated Glomerular Filt Rate > 60 mL/min (>60); Globulin 2.4 g/dL (1.7-4.1); Glucose 99 mg/dL (70-99); HEMOLYSIS < 15 (0-50); Potassium 4.2 mmol/L (3.4-5.1); Sodium 140 mmol/L (137-145); Total Protein 6.8 g/dL (6.3-8.2)
== END ==
PROVIDERS: PCP Student in an Organized Health Care Education/Training Program; Referring Provider Registered Nurse; Visit Provider Registered Nurse
DX: L40.8 Other psoriasis (principal); L20.89 Other atopic dermatitis; L25.9 Unspecified contact dermatitis, unspecified cause; L30.0 Nummular dermatitis; L93.0 Discoid lupus erythematosus; R21 Rash and other nonspecific skin eruption; Z79.899 Other long term (current) drug therapy; R76.89 Other specified abnormal immunological findings in serum
CPT/HCPCS: 36415; 80053; 85025; 86038